=== PATIENT | male | born 1995 | race Caucasian/White ===

== ENCOUNTER 2024-04-22 08:12 | Emergency (ER) | payer BC, SELFPAY ==
[2024-04-22 08:24] VITALS: BP 152/77; PULSE 87; RESP 18; TEMP 36.2; O2SAT 100
--- NOTE | 2024-04-22 08:27 | ED_ITS ---
HPI - URI/Sore Throat General Chief Complaint: Upper Respiratory Infection Stated Complaint: Ears/Cough Time Seen by Provider: 04/22/24 08:27 Source: patient Mode of arrival: ambulatory Limitations: no limitations History of Present Illness HPI Narrative: 28-year-old male presents with complaint of sore throat, chills, fatigue for 1 day. Afebrile. reports sore throat pain is radiating to ears. All systems reviewed and negative except as noted above. Related Data Allergies Allergy/AdvReac Type Severity Reaction Status Date / Time No Known Allergies Allergy Verified 04/22/24 08:27 Review of Systems Review of Systems: CONSTITUTIONAL: Denies fever, chills, or sweats. EYES: Denies visual changes, redness, or discharge. ENT: Denies rhinorrhea, congestion . Reports sore throat and otalgia. CARDIOVASCULAR: Denies chest pain, palpitations, or edema. RESPIRATORY: Denies cough or dyspnea. GASTROINTESTINAL: Denies abdominal pain, nausea, vomiting, or diarrhea. GENITOURINARY: Denies dysuria or hematuria. SKIN: Denies rash or itching. MUSCULOSKELETAL: Denies back pain, joint pain, or myalgia. NEUROLOGIC: Denies headache, numbness, or weakness. PSYCHIATRIC: Denies anxiety or depression. All other systems reviewed are negative, except as documented in HPI. PMFSH Past Medical History Medical History Adult BMI 31.0-31.9 kg/sq m Anxiety disorder, unspecified BMI greater than 30 Need for Tdap vaccination Family History Family History Grandparent Hypertension Acute myocardial infarction Social History Social History Smoking status: Current every day smoker Tobacco type: cigarettes Alcohol intake: never Comments At time of signature, agree with nursing past medical, surgical, social and f amily history. There is no relevant family history pertinent to the presenting complaint. Exam Narrative: GENERAL: This is a well-nourished, well-developed patient, in no apparent distress. HEAD: normocephalic, atraumatic. EYES: PERRL. Sclera clear/white. Vision is grossly intact. EARS: External ears normal, auditory canals clear and without drainage, TMs normal without perforation. Hearing grossly intact. NOSE: External nose normal with no obvious nasal discharge, nares without redness, no rhinorrhea. THROAT: Mucous membranes moist, Erythema and swelling to posterior pharynx NECK: Neck supple, non-tender without lymphadenopathy, masses or thyromegaly. CARDIOVASCULAR: Regular rate and rhythm without murmurs, gallops, or rubs. RESPIRATORY: Clear to auscultation. Breath sounds equal bilaterally. No wheezes, rales, or rhonchi. SKIN: warm, Dry, intact with no suspicious lesions or rash, good texture and turgor. NEURO: awake, alert, and oriented to person, place and time. There were no obvious focal neurologic abnormalities. EXTREMITIES: No joint tenderness, effusion, or edema noted. Course Course Level of Care: Express Care Visit Vital Signs Vital signs: Vital Signs Temperature 36.2 C L 04/22/24 08:24 Pulse Rate 87 04/22/24 08:24 Respiratory Rate 18 04/22/24 08:24 Blood Pressure 152/77 H 04/22/24 08:24 Pulse Oximetry 100 04/22/24 08:24 Oxygen Delivery Room Air 04/22/24 08:24 Temperature 36.2 C L 04/22/24 08:24 Pulse Rate 87 04/22/24 08:24 Respiratory Rate 18 04/22/24 08:24 Blood Pressure 152/77 H 04/22/24 08:24 Pulse Oximetry 100 04/22/24 08:24 Oxygen Delivery Room Air 04/22/24 08:24 reviewed MDM - URI/Sore Throat MDM Narrative Medical decision making narrative: Patient is aware of diagnosis, understands and agrees to treatment plan. Anticipatory guidance given. Patient agrees to follow-up as directed and is aware of reasons to seek care at the emergency department. Portions of this record may have been created with voice recognition software patient positive for strep throat. Will treat with amoxicillin. Patient well- appearing, nontoxic. Differential Diagnosis Differential diagnosis: Likely upper respiratory infection, sinusitis, viral infection and pharyngitis Lab Data Labs: Lab Results 04/22/24 Range/Units 08:44 POC Grp A Strep Screen Positive (Negative) Discharge Plan Discharge Clinical Impression: Strep throat Patient Disposition: Home, Self-Care Condition: Stable Instructions: Antibiotic Form, Strep Throat (DC) Additional Instructions: Your strep test was positive today. Take antibiotic as prescribed until gone. Change toothbrush after taking antibiotic for 24 hours. Take tylenol or ibuprofen every 6 to 8 hours as needed for pain/fever. Drink at least 64 ounces of water a day. Prescriptions: New amoxicillin 500 mg capsule 500 mg PO Q12H 10 Days Qty: 20 0RF Follow-up/Referrals: Xander Zepeda MD [Primary Care Provider] - Stand Alone Forms: Work/School Release IP Time of Disposition: 08:46
[2024-04-22 08:49] LABS: EDSTREPNEGPOS1 Positive (Negative)
== END 2024-04-22 08:50 | disposition home or self-care (01) ==
PROVIDERS: Emergency Provider Nurse Practitioner Family; PCP Family Medicine
DX: J02.0 Streptococcal pharyngitis (principal); F17.210 Nicotine dependence, cigarettes, uncomplicated
CPT/HCPCS: 87880; 99213; G0463

== ENCOUNTER 2024-05-14 18:20 | Emergency (ER) | payer BC, SELFPAY ==
[2024-05-14 18:28] VITALS: BP 138/87; PULSE 98; RESP 16; TEMP 35.7; O2SAT 99
--- NOTE | 2024-05-14 18:36 | ED_ITS ---
HPI - URI/Sore Throat General Chief Complaint: Upper Respiratory Infection Stated Complaint: throat hurts/sore Time Seen by Provider: 05/14/24 18:45 Source: patient, RN notes reviewed and old records reviewed Mode of arrival: ambulatory Limitations: no limitations History of Present Illness HPI Narrative: Patient presents with complaints of 2 days of sore throat. He was recently treated for strep throat, he admits that he did not take his antibiotics properly. Just finished them a little bit ago, shortly after finishing, began with symptoms once again. He denies any fever, chills, sweats. He is able to manage own secretions, no drooling or stridor noted. Able to eat and drink, although he does say eating increases his pain. He has not taken any medications for his symptoms since they re-emerged. No other concerns today. Related Data Home Medications Medication Instructions Recorded Confirmed acetaminophen 500 mg tablet See Rx Instructions .Route .COMPLEX 05/14/24 05/14/24 aspirin 81 mg tablet,delayed See Rx Instructions .Route .COMPLEX 05/14/24 05/14/24 release docusate sodium 100 mg capsule See Rx Instructions .Route .COMPLEX 05/14/24 05/14/24 escitalopram oxalate 10 mg tablet 10 mg PO DAILY 05/14/24 05/14/24 gabapentin 100 mg capsule See Rx Instructions .Route .COMPLEX 05/14/24 05/14/24 hydrocodone 5 mg-acetaminophen 325 See Rx Instructions .Route .COMPLEX 05/14/24 05/14/24 mg tablet oxycodone 5 mg tablet See Rx Instructions .Route .COMPLEX 05/14/24 05/14/24 Allergies Allergy/AdvReac Type Severity Reaction Status Date / Time No Known Allergies Allergy Verified 05/14/24 18:23 Review of Systems Review of Systems: All systems reviewed & are unremarkable except as noted in HPI and below Constitutional: Constitutional: Reports no additional constitutional complaints ENT: Reports system reviewed and no additional complaints, except as documented, Reports as per HPI and Reports sore throat Cardiovascular: Cardiovascular: Reports no additional cardiovascular complaints Respiratory: Respiratory: Reports no additional respiratory complaints Gastrointestinal: Gastrointestinal: Reports no additional gastrointestinal complaints PMFSH Past Medical History Medical History Adult BMI 31.0-31.9 kg/sq m Anxiety disorder, unspecified BMI greater than 30 Need for Tdap vaccination Family History Family History Grandparent Hypertension Acute myocardial infarction Social History Social History Smoking status: Current every day smoker Tobacco type: cigarettes Alcohol intake: never Comments At the time of my signature, I reviewed and agree with the nursing past medical, surgical, social, and family history. There is no relevant family history pertinent to the patient complaint. Exam Const: General: cooperative, no acute distress, alert and awake Orientation/consciousness: oriented to person, oriented to place and oriented to time HENMT: Head: normal to inspection Mouth: Yes moist mucous membranes Throat: abnormal tonsil bilateral erythema, exudates and hypertrophy 2+ Resp: Effort & Inspection: normal respiratory effort and able to speak in complete sentences Auscultation: clear to auscultation bilaterally, no crackles, no rales, no rhonchi and no wheezes Cardio: Palpation: normal PMI Rate: regular rate Rhythm: regular rhythm Heart sounds: S1 normal heart sound present and S2 normal heart sound present Neuro: General: oriented to person, oriented to place and oriented to time Cranial nerves: Yes CN's II-XII intact bilaterally Psych: Appearance: grossly normal Thought process: Normal thought process present Insight: Good insight present (Psych) Judgement: Good judgement present (Psych) Course Course Level of Care: Express Care Visit Vital Signs Vital signs: Vital Signs Temperature 96.3 F L 05/14/24 18:28 Pulse Rate 98 05/14/24 18:28 Respiratory Rate 16 05/14/24 18:28 Blood Pressure 138/87 05/14/24 18:28 Pulse Oximetry 99 05/14/24 18:28 Oxygen Delivery Room Air 05/14/24 18:28 Temperature 96.3 F L 05/14/24 18:28 Pulse Rate 98 05/14/24 18:28 Respiratory Rate 16 05/14/24 18:28 Blood Pressure 138/87 05/14/24 18:28 Pulse Oximetry 99 05/14/24 18:28 Oxygen Delivery Room Air 05/14/24 18:28 Reviewed MDM - URI/Sore Throat MDM Narrative Medical decision making narrative: Patient with strep throat. Nontoxic appearing. Stable for discharge home on p.o. antibiotics. Discharge instructions reviewed with patient, as well as provided in writing per nursing staff. The instructions also include specific and strict return/GO TO THE ER as well as f/u information. All questions have been answered, and the patient deny any further questions with discharge and discharge plan. Some parts of this dictation were generated by voice recognition software and may contain typographical and/or grammatical inaccuracies. Differential Diagnosis Differential diagnosis: Likely upper respiratory infection, otitis media, viral infection and influenza Medical Records Attestation: I reviewed the patient's medical records. Lab Data Attestation: I reviewed the patient's lab results. Discharge Plan Discharge Clinical Impression: Strep pharyngitis Patient Disposition: Home, Self-Care Condition: Stable Instructions: Antibiotic Form, Strep Throat (ED) Additional Instructions: Take all medications as prescribed. Follow with primary care provider. Emergency department for new or worsening symptoms Patient Language: Lithuanian Prescriptions: New penicillin V potassium 500 mg tablet 500 mg PO Q12H 10 Days Qty: 20 0RF No Action hydrocodone-acetaminophen 5-325 mg tablet See Rx Instructions .ROUTE .COMPLEX Rx Instructions: Rx aspirin 81 mg tablet,delayed release (DR/EC) See Rx Instructions .ROUTE .COMPLEX Rx Instructions: Rx acetaminophen 500 mg tablet See Rx Instructions .ROUTE .COMPLEX Rx Instructions: Rx docusate sodium 100 mg capsule See Rx Instructions .ROUTE .COMPLEX Rx Instructions: Rx gabapentin 100 mg capsule See Rx Instructions .ROUTE .COMPLEX Rx Instructions: Rx oxycodone 5 mg tablet See Rx Instructions .ROUTE .COMPLEX Rx Instructions: Rx escitalopram oxalate 10 mg tablet 10 mg PO DAILY Follow-up/Referrals: Xander Zepeda MD [Primary Care Provider] - 2 Weeks
[2024-05-14 18:44] LABS: EDSTREPNEGPOS1 Positive (Negative)
== END 2024-05-14 18:56 | disposition home or self-care (01) ==
PROVIDERS: Emergency Provider Nurse Practitioner Family; PCP Family Medicine
DX: J02.0 Streptococcal pharyngitis (principal); F17.210 Nicotine dependence, cigarettes, uncomplicated; F41.9 Anxiety disorder, unspecified; Z79.82 Long term (current) use of aspirin
CPT/HCPCS: 87880; 99213; G0463

== ENCOUNTER 2024-08-29 12:11 | Emergency (ER) | payer BC, SELFPAY ==
--- NOTE | 2024-08-29 12:15 | ED_ITS ---
HPI - URI/Sore Throat General Chief Complaint: Upper Respiratory Infection Stated Complaint: cough, clogged ears , heavy chest Time Seen by Provider: 08/29/24 12:15 Source: patient Mode of arrival: ambulatory Limitations: no limitations History of Present Illness HPI Narrative: Patient is a 21-year-old male who presents with 5 days of cough, chest congestion, and headache. Denies fever, chills, nausea, vomiting, diarrhea. Current everyday smoker. Has not taken anything for symptoms Related Data Home Medications ?Medication ?Instructions ?Recorded ?Confirmed ?Last Taken ?Type acetaminophen 500 mg tablet See Rx Instructions .Route .COMPLEX 05/14/24 08/29/24 Unknown History Allergies Allergy/AdvReac Type Severity Reaction Status Date / Time No Known Allergies Allergy Verified 05/14/24 18:23 Review of Systems Review of Systems: All systems reviewed & are unremarkable except as noted in HPI and below Constitutional: Constitutional: Denies chills, Denies fatigue, Denies feve r(s), Reports headache(s), Denies malaise and Denies weakness Eyes: Eyes: Denies blurry vision, Denies itchy eyes and Denies loss of vision ENT: Denies otalgia, Reports headache(s), Denies nasal congestion, Denies sinus pain and Denies sore throat Cardiovascular: Cardiovascular: Denies chest pain, Denies irregular heart rhythm and Denies dyspnea Respiratory: Respiratory: Reports chest congestion, Reports cough and Denies dyspnea Gastrointestinal: Gastrointestinal: Denies abdominal pain, Denies diarrhea, Denies nausea and Denies vomiting Musculoskeletal: Musculoskeletal: Denies back pain, Denies myalgias and Denies arthralgias Integumentary/Breasts: Skin/Breast: Denies pruritus and Denies rash Neurologic: Reports headache(s), Denies loss of vision and Denies weakness Psychiatric: Psychiatric: Reports no additional psychiatric complaints Endocrine: Endocrine: Denies fatigue Allergic/Immunologic: Allergic/Immunologic: Denies itchy eyes PMFSH Past Medical History Medical History Adult BMI 31.0-31.9 kg/sq m Anxiety disorder, unspecified Need for Tdap vaccination BMI greater than 30 Family History Family History Grandparent Hypertension Acute myocardial infarction Social History Social History Smoking status: Current every day smoker Tobacco type: cigarettes Alcohol intake: never Comments At time of signature, agree with nursing past medical, surgical, social and family history. There is no relevant family history pertinent to the presenting complaint. Exam Const: General: cooperative, healthy appearing, comfortable, no acute distress and well nourished Nutritional Appearance: well nourished Orientation/consciousness: patient oriented x3 Limitations: no limitations HENMT: Head: normal to inspection, normocephalic and atraumatic Ears: hearing grossly normal bilaterally, external ears normal, TM's normal bilateral ly, EAC's normal and no periauricular adenopathy Face/Nose/Sinus: Normal external nose present, Abnormal mucous membranes and turbinates present erythematous bilateral and diffuse, normal facial exam, sinuses nontender and face symmetric Face and sinus: normal facial exam, sinuses nontender and face symmetric Mouth: Yes Normal oral and palatal mucosa present, Yes lip normal, Yes tongue normal, Yes Normal salivary glands and ducts present, Yes oropharynx normal and Yes moist mucous membranes Teeth and gingiva: dentition normal Throat: posterior oropharynx normal, tonsils normal and uvula midline Eyes: General: appearance normal, both eyes and all related structures Alignment and Position: alignment normal and position normal Periorbital: periorbital findings normal Eyelids: eyelids normal Pupils: Equal, round and reactive pupils present Neck: Neck: normal visual inspection, full ROM, no lymphadenopathy and supple Chest: Chest palpation & inspection: normal inspection of the chest and normal palpation of entire chest wall Resp: Effort & Inspection: normal respiratory effort, able to speak in complete sentences and Actively coughing actively coughing Auscultation: no crackles, no rales, rhonchi throughout and no wheezes Cardio: Rate: regular rate Rhythm: regular rhythm Heart sounds: S1 normal heart sound present and S2 normal heart sound present GI: Inspection: normal to inspection Skin: General skin exam: normal color and no rashes or lesions noted Neuro: General: patient oriented x3 and moves all extremities Cranial nerves: Yes Equal, round and reactive pupils present Speech: normal speech Gait exam (Neuro): Normal gait present Extrem: General: normal to inspection, full ROM and no edema Psych: Appearance: grossly normal and well kempt Mental Status: mental status grossly normal Speech and movement: Normal speech and movement present Affect: normal affect Attitude: cooperative Thought process: Normal thought process present Course Course Emergency Course: Discharge instructions reviewed with patient, as well as provided in writing per nursing staff. The instructions also include specific and strict return/GO TO THE ER as well as f/u information. All questions have been answered, and the patient deny any further questions with discharge and discharge plan. Portions of this record may have been created with voice recognition software Level of Care: Express Care Visit Vital Signs Vital signs: Vital Signs Temperature 36.5 C 08/29/24 12:19 Pulse Rate 99 08/29/24 12:19 Respiratory Rate 16 08/29/24 12:19 Blood Pressure 157/90 H 08/29/24 12:19 Pulse Oximetry 100 08/29/24 12:19 Oxygen Delivery Room Air 08/29/24 12:19 Temperature 36.5 C 08/29/24 12:19 Pulse Rate 99 08/29/24 12:19 Respiratory Rate 16 08/29/24 12:19 Blood Pressure 157/90 H 08/29/24 12:19 Pulse Oximetry 100 08/29/24 12:19 Oxygen Delivery Room Air 08/29/24 12:19 Reviewed MDM - URI/Sore Throat MDM Narrative Medical decision making narrative: Pt well hydrated appearing, in no respiratory distress, hemodynamically stable. Recommend supportive care. The patient is stable at time of discharge the clinical impression was discussed and the patient was given the opportunity to ask questions, which were addressed as completely as possible given the information available at present. Anticipatory guidance and return to care precautions were discussed and the importance of primary care follow-up was stressed and encouraged. The patient voiced understanding of the plan, indications to return, and the need for follow-up. Differential diagnosis considered: Bronchitis, Wagoner virus, strep pharyngitis, allergic rhinitis, upper respiratory tract infection, sinusitis, rhinosinusitis, nasopharyngitis. viral pharyngitis, otitis media, otitis externa, otitis effusion, foreign body, cerumen impaction, viral syndrome, and influenza.? Exam findings show no acute concerns or changes; patient is non-toxic appearing and is in no distress.? Patient is appropriate for outpatient treatment and follow- up.? Medical Records Attestation: I reviewed the patient's medical records. Lab Data Attestation: I reviewed the patient's lab results. Labs: Lab Results 08/29/24 Range/Units 12:22 POC Influenza A Ag Negative (Negative) POC Influenza B Ag Negative (Negative) POC SARS CoV-2 Ag Negative (Negative) Discharge Plan Discharge Clinical Impression: Acute purulent bronchitis, Current every day smoker Patient Disposition: Home, Self-Care Condition: Stable Instructions: Acute Bronchitis (ED) Additional Instructions: Take antibiotic as prescribed. Take steroids per package instructions. Use Tessalon Perles as needed for cough. Use inhaler with spacer as needed. Other symptomatic treatments include: -Alternate Tylenol and Motrin per package directions for fever or pain: Tylenol 650-1000mg by mouth every 4-6 hours. Do not exceed 4000mg in 24 hours. Advil (Ibuprofen) 600 mg by mouth every 6 hours. Do not exceed 2400mg in 24 hours. 8 AM: Tylenol 11 AM: Ibuprofen 2 PM: Tylenol 5 PM: Ibuprofen 8 PM: Tylenol 11 PM: Ibuprofen 2 AM: Tylenol 5 AM: Ibuprofen -Antihistamine medication such as Benadryl at night and Zyrtec/Claritin/Sharyn during the day can help improve symptoms. -Use Flonase twice a day for 5 days then daily to help reduce the inflammation and dry up your sinuses. -You can also use Sudafed or Mucinex. Be sure to drink plenty of water with th ary medications at least 8 ounces with every dose and it is important to drink 8 to 10 glasses of water per day. Water is a natural decongestant -Eat and drink things that are easy to swallow, like tea or soup, or popsicles. -Oral rinses such as: Salt water gargles and/or may use topical anesthetic (eg. Chloraseptic spray) or lozenges to relieve dryness or throat pain). -Frequent hand washing or hand dry heat cabinet attendant is one of the best ways to prevent spread of infection. -Using a vaporizer or humidifier at night will also help thin secretions and help with coughing up phlegm. Call your Primary Care Doctor and make a follow-up appointment in 3 days. If your cough worsens, you develop a fever greater than 103, you develop shaking chills, a fast heartbeat, trouble breathing and/or feel you are are breathing much faster than usual, call your Primary Care Doctor or go to the ER. Your blood pressure was elevated above 120/80 today at Urgent Care. This puts you above the threshold for follow up visit with a primary care provider. High blood pressure does not usually cause any symptoms, however it may lead to kidney failure, stroke, heart disease just to name a few if untreated . Many people are anxious when seeing a provider or nurse. As a result, you are not diagnosed with hypertension at this time unless your blood pressure is persistently high at two office visits at least one week apart. Some things that can help lower blood pressure are lifestyle modifications, such as light exercise, decreased salt in diet, and weight loss. It is important to follow up with a PCP about this within 1 week. Patient Language: Kyrgyz Prescriptions: New azithromycin 250 mg tablet See Rx Instructions .ROUTE .COMPLEX Qty: 6 0RF Rx Instructions: For 250 mg dose pack: take 500 mg today (day 1), then 250 mg for 4 days (days 2-5) benzonatate 100 mg capsule 100 mg PO BID PRN (Reason: cough) Qty: 14 0RF methylprednisolone [Medrol (James)] 4 mg tablets,dose pack See Rx Instructions .ROUTE .COMPLEX Qty: 21 0RF Rx Instructions: orally per package directions albuterol sulfate 90 mcg/actuation HFA aerosol inhaler 2 puff inhalation QID PRN (Reason: shortness of breath or wheezing) Qty: 6.7 0RF (DME) Aerochamber MV Spacer See Rx Instructions .Route Qty: 1 0RF Rx Instructions: As directed No Action acetaminophen 500 mg tablet See Rx Instructions .ROUTE .COMPLEX Rx Instructions: Rx Follow-up/Referrals: Xander Zepeda MD [Primary Care Provider] - Stand Alone Forms: Work/School Release IP Time of Disposition: 13:07
[2024-08-29 12:19] VITALS: BP 157/90; PULSE 99; RESP 16; TEMP 36.5; O2SAT 100
[2024-08-29 12:42] LABS: EDCOVIDSCREEN Negative (Negative); EDINFLUASCREEN Negative (Negative); EDINFLUBSCREEN Negative (Negative)
== END 2024-08-29 13:11 | disposition home or self-care (01) ==
PROVIDERS: Emergency Provider Nurse Practitioner Family; PCP Family Medicine
DX: J20.9 Acute bronchitis, unspecified (principal); F17.210 Nicotine dependence, cigarettes, uncomplicated; Z20.822 Contact with and (suspected) exposure to COVID-19
CPT/HCPCS: 87426; 87804; 99213; G0463